=== PATIENT | female | born 1980 | race Caucasian/White ===

== ENCOUNTER 2016-04-23 13:51 | Emergency (ER) | payer BC, OTHER ==
[2016-04-23 14:12] VITALS: BP 127/77
--- NOTE | 2016-04-23 14:27 | UC ---
Throat Pain/Nasal Kenny HPI - HPI Summary HPI Summary: compaint of feeling that she has sinus pressure and sore throat bilateral ear pain, nasal congestion, cough vomited 1-2x for the last 2 days due mucus going down the back of her throat sore throat that started approx 7 days ago and has worsened fever for the last 3 days 101 or so- taking acetaminophen for fever with relief able to drink fluids without difficulty - History of Current Complaint Chief Complaint: UCGeneralIllness Stated Complaint: SORE THROAT,FEVER,VOMITING,COUGH,SINUS Time Seen by Provider: 04/23/16 14:20 Hx Obtained From: Patient Hx Last Menstrual Period: 04/12/16 - Allergies/Home Medications Allergies/Adverse Reactions: Allergies Allergy/AdvReac Type Severity Reaction Status Date / Time Bee Venom Allergy Hives, Verified 04/23/16 14:09 Swelling Iodine Allergy Hives, Verified 04/23/16 14:09 Vomiting, Diarrhea PMH/Surg Hx/FS Hx/Imm Hx Previously Healthy: Yes - Surgical History Surgical History: Yes Surgery Procedure, Year, and Place: [place]olecystectomy, 2010, [place]; [facility] , 2006 2010, [place] - Family History Known Family History: Positive: Diabetes - mother Negative: Cardiac Disease, Hypertension - Social History Occupation: Employed Full-time Lives: With Family Alcohol Use: Rare Substance Use Type: None Smoking Status (MU): Never Smoked Tobacco - Immunization History Most Recent Influenza Vaccination: Not the Season Review of Systems Constitutional: Fever Skin: Negative Eyes: Negative ENT: Sore Throat, Nasal Discharge Respiratory: Cough Cardiovascular: Negative Gastrointestinal: Vomiting Genitourinary: Negative Motor: Negative Neurovascular: Negative Musculoskeletal: Negative Neurological: Negative Psychological: Negative All Other Systems Reviewed And Are Negative: Yes Physical Exam Triage Information Reviewed: Yes Appearance: Well-Nourished, Ill-Appearing Vital Signs: Initial Vital Signs Temp 100.9 F 04/23/16 14:04 Pulse 118 04/23/16 14:04 Resp 18 04/23/16 14:04 BP 127/77 04/23/16 14:04 Pulse Ox 97 04/23/16 14:04 Vital Signs Reviewed: Yes Eyes: Positive: Conjunctiva Clear ENT: Positive: Pharyngeal erythema, Nasal congestion, TMs normal, Tonsillar swelling, Tonsillar exudate Neck: Positive: No Lymphadenopathy Respiratory: Positive: Lungs clear, Normal breath sounds, No respiratory distress Cardiovascular: Positive: No Murmur, Pulses Normal, Tachycardia Abdomen Description: Positive: Nontender, No Organomegaly, Soft Bowel Sounds: Positive: Present Musculoskeletal: Positive: No Edema Neurological: Positive: Alert Psychological Exam: Normal Skin Exam: Normal Throat Pain/Nasal Course/Dx - Differential Dx/Diagnosis Differential Diagnosis/HQI/PQRI: Pharyngitis, Sinusitis, URI, Other - strep throat Provider Diagnoses: strep pharyngitis Discharge - Discharge Plan Condition: Stable Disposition: HOME Prescriptions: Penicillin VK TAB* [Penicillin Vk Tab*] 500 mg PO BID #20 tab Patient Education Materials: Strep Throat (ED) Referrals: No Primary Care Phys,NOPCP [Primary Care Provider] - [facility] [place]] Additional Instructions: STREPTOCOCCAL PHARYNGITIS (Strep Throat) What is Strep Throat? Strep throat is an infection of the throat and/or tonsils caused by Streptococcus bacteria. Strep throat is contagious and can be passed from one person to another through coughing and sneezing. Infections that are caused by bacteria require antibiotics to be cured. You remain contagious until you have taken antibiotics for at least 24 hours. Symptoms Might Include: Pain in the throat area Swelling of the glands in the neck Pain with swallowing Fever Fatigue Ear pain White spots on your tonsils (caused by pus) Treatment Recommendations: An antibiotic may have been prescribed. The antibiotic should be taken until it is completely gone, even if you feel shadia. If you stop the antibiotic early , you may not cure the infection completely. Gargle with warm saltwater (place 1 tsp. of salt in a large glass of warm water ) every 3 to 4 hours. Take acetaminophen (Tylenol, Tempra) for pain and fever. Drink lots of fluids. Do not smoke. Use throat lozenges (Cepostat, Moxee, etc.) or suck on hard candy for temporary relief of the pain of swallowing. Dispose of used tissues immediately. Cover your mouth when coughing or sneezing. Wash hands frequently. Call Your Doctor or Return Here IF: Your symptoms do not improve within 2 days or you become worse. You have a fever over 101.0 F orally. You are unable to swallow liquids or saliva. You are drooling. You develop trouble breathing. You develop a rash. You develop a stiff neck. You develop pain in your chest. You develop any symptoms that are new or that concern you
[2016-04-23] MEDS ORDERED: Acetaminophen TAB* 325 MG PO ONE (14:29)
== END 2016-04-23 14:43 | disposition home or self-care (01) ==
LOC: UCCORT 13:51
DX: J02.0 Streptococcal pharyngitis (principal); H92.03 Otalgia, bilateral; Z88.8 Allergy status to other drugs, medicaments and biological substances; Z91.030 Bee allergy status
CPT/HCPCS: 87651; 99202; A9270-GY; G0463